=== PATIENT | female | born 1940 | race Caucasian/White ===

== ENCOUNTER 2018-04-19 09:33 | Day surgery (SDC) | payer MEDICARE, BC ==
[~2018-04-19 09:33] MED LIST: PROPOFOL 500 MG/50 ML EMU IV ONE
[2018-04-19 11:29] VITALS: TEMP 98.3
[2018-04-19 11:58] VITALS: BP 131/70; PULSE 79; RESP 20; O2SAT 94
== END 2018-04-19 12:03 | disposition home or self-care (01) | DRG 392 ==
LOC: SURG 09:33
PROVIDERS: ATTEND Internal Medicine Gastroenterology
DX: R13.10 Dysphagia, unspecified (principal); K21.9 Gastro-esophageal reflux disease without esophagitis; D64.9 Anemia, unspecified; K22.70 Barrett's esophagus without dysplasia; K44.9 Diaphragmatic hernia without obstruction or gangrene; L53.8 Other specified erythematous conditions; K29.40 Chronic atrophic gastritis without bleeding
CPT/HCPCS: J2704

== ENCOUNTER 2018-07-05 09:02 | Day surgery (SDC) | payer MEDICARE, BC ==
[2018-07-05 11:11] VITALS: TEMP 98.8
[2018-07-05 11:46] VITALS: BP 144/64; PULSE 79; RESP 20; O2SAT 98
[2018-07-05 15:28] LABS: PATHOLOGY SPEC OR BIOPSY REFER MAYO/MKTO PATH
== END 2018-07-05 12:35 | disposition home or self-care (01) | DRG 812 ==
LOC: SURG 09:02
PROVIDERS: ATTEND Internal Medicine Gastroenterology
DX: D50.9 Iron deficiency anemia, unspecified (principal); K57.32 Diverticulitis of large intestine without perforation or abscess without bleeding; K59.00 Constipation, unspecified; K64.4 Residual hemorrhoidal skin tags; K64.8 Other hemorrhoids; K63.5 Polyp of colon
CPT/HCPCS: J2704